=== PATIENT | female | born 1960 | race Caucasian/White ===

== ENCOUNTER → 2017-06-04 | Outpatient (CLI) | payer BC ==
--- NOTE | 2017-06-04 15:26 | Diagnostic Imaging Report ---
TECHNIQUE: Magnetic resonance imaging of the LEFT SHOULDER was performed WITHOUT injected contrast. Motion artifact partially limits sensitivity and specificity of the exam. HISTORY: Pain COMPARISON: None available. FINDINGS: MUSCLES AND TENDONS: Rotator Cuff: Tendons: Supraspinatus and Infraspinatus: Full-thickness tearing of the anterior supraspinatus tendon, measures approximately 0.8 cm (AP) x 1.2 cm (ML), the extent of the tear appears partially obscured by probable granulation tissue/scarring. Mild adjacent delamination. Teres Minor: Intact Subscapularis: Intact Muscles: No focal muscle atrophy. Biceps Tendon: The long head of the biceps tendon is intact and within the intertubercular groove. GLENOHUMERAL JOINT: Glenoid Labrum: Mild contour irregularity and attenuation of the posterior labrum. No discrete well-defined displaced labral tear. Articular Cartilage: Low-grade erosion of the glenoid cartilage. Joint Fluid: Small nonspecific effusion. ACROMIOCLAVICULAR JOINT: Minimal hypertrophic degenerative changes of the acromioclavicular joint. No effusion. BONE: The acromion is unremarkable. No focal or infiltrative bone marrow replacing abnormality. No acute fracture. SOFT TISSUES: Fluid in the subacromial/subdeltoid bursa, including with full-thickness rotator cuff tear. IMPRESSION: 1. Full-thickness tear involving the anterior portion of the distal supraspinatus tendon. 2. Mild degenerative changes of the glenohumeral joint, including the posterior labrum. 3. Minimal acromioclavicular osteoarthrosis. Signed by: Dr. Dash Gonzalez D.O., M.M.M. on 06/04/2017 3:22 PM
== END ==
LOC: MRI 13:23
PROVIDERS: ATTEND Emergency Medicine
DX: M25.512 Pain in left shoulder (principal)

== ENCOUNTER → 2018-11-05 | Outpatient (CLI) | payer BC ==
[~2018-11-05] MED LIST: IOPAMIDOL 370 MG/ML 200 ML INFUS..BTL INJ ONE; SODIUM CHLORIDE 0.9% 50ML 50 ML ONE
--- NOTE | 2018-11-05 12:46 | Diagnostic Imaging Report ---
CT of the abdomen and pelvis, with contrast. History: Abdominal pain. Comparison: None available. Technique: Multidetector CT scanning of the abdomen and pelvis was performed from the level of the lung bases to the inferior pubic rami after intravenous contrast material only. Coronal and sagittal multiplanar reformations were obtained. RADIATION DOSE: Total DLP: 191.37 mGy*cm Dose modulation, iterative reconstruction, and/or weight based adjustment of the mA/kV was utilized to reduce the radiation dose to as low as reasonably achievable. FINDINGS: There is bibasilar atelectasis/scarring. The imaged portion of the heart demonstrates no significant abnormalities. The liver is normal in size and attenuation without evidence for focal abnormality. The gallbladder is not visualized and may be surgically absent. There is no biliary ductal dilatation. There are multiple surgical clips identified at the GE junction, please refer to prior surgical history. There is a moderate hiatal hernia. The stomach otherwise appears unremarkable. The spleen, pancreas, and bilateral adrenal glands are unremarkable. The kidneys are normal in size and location concentrate contrast material properly. There is no evidence of hydronephrosis. The ureters are normal in caliber. The urinary bladder is unremarkable. The uterus is nonvisualized and likely surgically absent. No abnormal adnexal masses are identified. The abdominal aorta is normal in course and caliber. The IVC is unremarkable. Please note evaluation the bowel is limited without the use of enteric contrast material. High density material suggestive of suture material is identified within the right lower quadrant which may reflect prior partial bowel resection. The visualized loops of small and large bowel demonstrate no evidence of obstruction or inflammation. There is no ascites or intraperitoneal free air. No abnormally enlarged lymph nodes are identified within the abdomen or pelvis. The osseous structures demonstrate degenerative changes without evidence for acute fracture or destructive process. The extraperitoneal soft tissues are unremarkable. IMPRESSION: No acute abdominopelvic process identified to correlate with patient's abdominal pain. Moderate size hiatal hernia with postsurgical changes noted at the GE junction. Additional postsurgical changes from prior cholecystectomy, hysterectomy, and bowel resection. Signed by: Dr. Ja Greenberg MD on 11/05/2018 12:42 PM
--- NOTE | 2018-11-05 12:47 | Diagnostic Imaging Report ---
EXAM: CHEST 2 VIEWS DATE: 11/05/2018 11:50 AM INDICATION: Abdominal pain COMPARISON: None FINDINGS: Right IJ tunneled central venous catheter identified with tip terminating at the cavoatrial junction. Vascular stent noted overlying the SVC. The trachea is midline. The lungs are symmetrically expanded without evidence for large focal consolidation, pneumothorax, or significant pleural effusion. There is a retrocardiac air-fluid level suggestive of hiatal hernia. No acute osseous abnormality is identified. IMPRESSION: No acute cardiopulmonary process identified. Signed by: Dr. Ja Greenberg MD on 11/05/2018 12:44 PM
--- NOTE | 2018-11-13 09:14 | Diagnostic Imaging Report ---
#[id number] - MGSCRBIL #BILATERAL DIGITAL SCREENING MAMMOGRAM WITH CAD: 11/05/2018 CLINICAL: Routine screening. Comparison is made to exam dated: 06/03/2011 mammogram - [facility]. Current study contains 4 films. There are scattered fibroglandular elements in both breasts. Current study was also evaluated with a Computer Aided Detection (CAD) system. There is a 1.2 cm lobulated mass with an obscured margin in the left breast at 4 o'clock middle depth. No other significant masses, calcifications, or other findings are seen in either breast. IMPRESSION: INCOMPLETE: NEEDS ADDITIONAL IMAGING EVALUATION The 1.2 cm lobulated mass in the left breast is indeterminate. Compression views as well as an ultrasound are recommended. The patient will be contacted by the Mammography Department to schedule this appointment. JUAN CONLEY M.D. ct/penrad:11/12/2018 17:04:51 Infusion Rn: Traci JAY(Renetta)(Taty), [facility] letter sent: Additional Imaging Needed Mammogram BI-RADS: 0 Indeterminate
== END ==
LOC: MAMMO 11:03
PROVIDERS: ATTEND Emergency Medicine
DX: Z12.31 Encounter for screening mammogram for malignant neoplasm of breast (principal); R10.9 Unspecified abdominal pain; K44.9 Diaphragmatic hernia without obstruction or gangrene
CPT/HCPCS: 71046; 74177; 77067; Q9967

== ENCOUNTER → 2018-11-29 | Outpatient (CLI) | payer BC ==
--- NOTE | 2018-12-02 09:11 | Diagnostic Imaging Report ---
#[id number] - USBRELIMLT ULTRASOUND OF THE LEFT BREAST : 11/29/2018 Comparison is made to exams dated: 11/29/2018 mammogram and 11/05/2018 mammogram - [facility]. Real-time ultrasound was performed on the left breast. There is a benign cluster of 0.5 - 1 cm oval cysts with a smooth internal wall in the left breast at 4 o'clock anterior depth. This correlates with mammography findings. IMPRESSION: BENIGN There is no sonographic evidence of malignancy. The cluster of oval cysts in the left breast is benign. A 1 year screening mammogram is recommended. JUAN CONLEY M.D. ct/:11/29/2018 16:37:42 Loading Unit Operator Crimping: MARBELLA GILBERT RDSC, [facility] letter sent: Normal Exam Ultrasound BI-RADS: 2 Benign
--- NOTE | 2018-12-02 09:11 | Diagnostic Imaging Report ---
#[id number] - MGDXLT #UNILATERAL LEFT DIGITAL DIAGNOSTIC MAMMOGRAM WITH SPOT COMPRESSION: 11/29/2018 Comparison is made to exams dated: 11/05/2018 mammogram - [facility] and 06/03/2011 mammogram - [facility]. There are scattered fibroglandular elements in the left breast. There is a benign cluster of 0.5 - 1 cm cysts with a circumscribed margin in the left breast at 4 o'clock anterior depth. This correlates with ultrasound findings. No other significant masses or calcifications are seen in the breast. IMPRESSION: BENIGN See the report for ultrasound performed the same day for additional details. There is no mammographic evidence of malignancy. A 1 year screening mammogram is recommended. The patient will be notified by letter of the results. JUAN CONLEY M.D. ct/:11/29/2018 16:36:26 Transportation Maintenance Worker: Traci JAY(Renetta)(Taty), [facility] letter sent: Normal Exam Mammogram BI-RADS: 2 Benign
== END ==
LOC: MAMMO 14:06
PROVIDERS: ATTEND Emergency Medicine
DX: N63.20 Unspecified lump in the left breast, unspecified quadrant (principal)

== ENCOUNTER → 2019-09-12 | Outpatient (CLI) | payer BC ==
--- NOTE | 2019-09-12 13:12 | Diagnostic Imaging Report ---
CT MAXIO FAC/PARANAS WO HISTORY: Right-sided headache, sinusitis COMPARISON: None. TECHNIQUE: Axial CT images through the face were obtained without contrast. Coronal/sagittal reformations were created. One or more of the following dose reduction techniques were used: Automated exposure control, adjustment of the mA and/or kV according to patient size, and/or utilization of iterative reconstruction technique. DISCUSSION: No acute fracture is seen. There are mild degenerative changes throughout the spine. The orbits are intact. Intraorbital contents are grossly unremarkable. The paranasal sinuses, major drainage pathways, and nasal cavities are clear. Otherwise, the visualized soft tissues and intracranial compartment are grossly unremarkable. IMPRESSION: The paranasal sinuses, major drainage pathways, and nasal cavities are clear. Signed by: Dr. Kyle Carballo M.D. on 09/12/2019 1:09 PM
== END ==
LOC: CT 10:33
PROVIDERS: ATTEND Emergency Medicine
DX: J01.90 Acute sinusitis, unspecified (principal)
CPT/HCPCS: 70486